=== PATIENT | male | born 1955 | race Caucasian/White ===

== ENCOUNTER 2018-08-05 16:13 | Emergency (ER) | payer SELFPAY ==
[2018-08-05 16:18] VITALS: BP 135/78; PULSE 99; RESP 18; TEMP 36.8; O2SAT 98
--- NOTE | 2018-08-05 16:29 | DI.RAD_ITS ---
SYMPTOM/DIAGNOSIS: ROLLED, CONTUSION, PAIN LEFT ANKLE: Three views. No priors. There is a mildly displaced oblique fracture of the distal left fibula. The medial aspect of the fracture line extends to the joint space. On the lateral views, there is a nondisplaced posterior malleolar fracture. No other fracture is identified. There is widening of the medial ankle joint. There is soft tissue swelling of the ankle. A large spur is seen at the inferior aspect of the posterior calcaneus. No radiopaque foreign bodies are seen in the soft tissues. IMPRESSION: Mildly displaced fracture involving the distal fibula. Nondisplaced fracture involving the posterior malleolus. Mild widening of the medial joint space of the left ankle.
--- NOTE | 2018-08-05 16:30 | W.ED.GENAD ---
Discharge Plan Disposition Patient Disposition: HOME Condition: Good Discharge Details Chief Complaint: Orthopedic Clinical Impression: Closed trimalleolar fracture Primary Care Provider: Wendie Milton ED Provider: Duran Bradley [place] Meds and New Rx's Prescriptions: New oxycodone-acetaminophen [Percocet] 5-325 mg tablet 1 tab PO Q6H PRN (Reason: trimalleolar fracture) Qty: 10 RF: 0 No Action lisinopril 20 MG tablet 20 mg PO DAILY RF: 0 methylprednisolone [Medrol] 4 MG tablet 4 mg PO DIRECTED RF: 0 adalimumab [Humira Pen Psoriasis-Uveitis] 40 MG/0.8 ML pen injector kit 40 mg SQ DIRECTED RF: 0 metformin 500 MG tablet 500 mg PO BID RF: 0 polyethylene glycol 3350 [Miralax] 17 GM powder in packet 255 gm PO for colonoscopy Qty: 1 RF: 0 bisacodyl [Dulcolax (bisacodyl)] 5 MG tablet,delayed release (DR/EC) 5 mg PO ONCE Qty: 4 RF: 0 Discharge Instructions Additional Instructions: Please do not weight bear on the left leg. Referrals: Audi Mcmahon MD [ [facility] STAFF PHYSICIAN] - Medical Decision Making Plan to x-ray left ankle. Pt declines medication for pain. Discussed impression of x-ray. Plan to CT ankle. Place patient in posterior splint and provide crutches. Non weight bearing until instructed by orthopedic. 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 He will be placed on orthopedic list. I did advise patient to be NPO after Tuesday night incase there is a chance he goes to OR Tuesday. Will provide Percocet for night time use. Risk versus benefits discussed with pt. I dispensed six percocet and prescribed ten. Patient surprisingly not in much pain but would like something to help with pain at night. He has been hobbling around for three days on the fracture. He agreed with POC. He tolerated splint placement. We discussed f/u and symptoms to return to ED for. Imaging Data Radiologic Study: Attestation: I personally reviewed and interpreted this imaging study as follows: Imaging: X-Ray My impression: distal fib fracture and question distal medial malleolus fx with slight widening of mortise. Ct: 1. Again noted is a mildly displaced fracture of the distal left fibula. Some bony fragments are noted in the lateral joint space. There is widening of the lateral ankle mortise. 2. There is some cortical irregularity to the anterior aspect of the medial malleolus on series 5 image 173 and the posterior aspect of the distal tibia on series 8 image 46. These appear well -corticated and therefore are favored to be chronic. Oddly, they have a more acute appearance on plain films. Given this discordance, correlation with symptomology is recommended. If there remains a concern for acute fracture in these regions, MRI could be considered. 3. Soft tissue swelling. Radiologist's impression: v-rad: 1. There is a mildly displaced fracture of the distal left fibular shaft. There is a linear lucency through the medial malleolus on image 1002, also worrisome for fracture. There is a fracture of the posterior malleolus, image 1003. Constellation of findings are concerning for a trimalleolar ankle fracture. There is widening of the medial ankle mortise. 2. Soft tissue swelling. This nonspecific finding that can be seen with trauma or infection. HPI General Mode of arrival: ambulatory (with limp ). Date/Time Provider Initiated Documentation: 08/05/18 16:22. Limitations to Documentation: no limitations. Information obtained by: patient and family. HPI Narrative: 63 y/o male here with c/o left ankle pain. He reports twisting and striking it against a piece of wood three days ago. He has not rested the ankle. 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 He still has pain and significant discoloration to the left ankle. The bruising is resolving. Denies any other injury. Related Data Home Medications Medication Instructions Recorded Confirmed adalimumab [Humira Psoriasis] 40 mg SQ DIRECTED 08/14/15 06/01/17 lisinopril 20 mg PO DAILY tab-cap 08/14/15 06/01/17 methylprednisolone [Medrol] 4 mg PO DIRECTED 08/14/15 06/01/17 metformin 500 mg PO BID tab-cap 04/29/17 06/01/17 bisacodyl [Dulcolax] 5 mg PO ONCE #4 tab 05/02/17 polyethylene glycol 3350 [Miralax] 255 gm PO for colonoscopy #1 gm 05/02/17 oxycodone-acetaminophen [Percocet] 1 tab PO Q6H PRN #10 tab 08/05/18 Previous Rx's Medication Instructions Recorded oxycodone-acetaminophen [Percocet] 1 tab PO Q6H PRN #10 tab 08/05/18 Allergies Allergy/AdvReac Type Severity Reaction Status Date / Time No Known Drug Allergies Allergy Unverified 06/01/17 06:35 General Stated Complaint: Orthopedic BHAVIK: 4 Review of Systems Constitutional Reports as per HPI Musculoskeletal Reports other (left ankle pain ) PFSH Family History Mother Heart disease Father Heart disease Sister Neoplasm Sister No problems noted. Sister No problems noted. Sister No problems noted. Brother No problems noted. Brother No problems noted. Brother Substance abuse Heart disease Hyperlipidemia Brother Neoplasm Brother No problems noted. Brother No problems noted. Brother No problems noted. Social History Smoking/Tobacco Use Status: Never Surgical History Colonoscopy - IV Sedation (06/01/17) Exam Const General: cooperative, healthy appearing and no acute distress Orientation: alert, awake and oriented x3 Extrem General: full ROM, normal capillary refill and no calf tenderness Left lower extremity: full ROM (with pain. Pain with dorsiflexion of the left foot causes lateral ankle pain. ) and ankle Details: tenderness Location: of the lateral malleolus, swelling Details: diffusely, normal ROM (with pain) and ecchymosis; no warmth Ankle/foot/toe images: 1. Discoloration yellow mixed with bluish discoloration encompassing entire ankle. Pain is greater over the lateral malleolus. Pain to lateral ankle when palpating the heel of foot. 2. Discoloration yellow mixed with bluish discoloration encompassing entire ankle. Pain is greater over the lateral malleolus. Pain to lateral ankle when palpating the heel of foot. Psych Affect: normal affect Attitude: cooperative Thought Process: normal Thought Content: normal Insight: insight good Judgment: judgment good Course Vital Signs Temperature 36.8 C 08/05/18 16:18 Pulse 99 H 08/05/18 16:18 Respiratory Rate 18 08/05/18 16:18 Blood Pressure 135/78 08/05/18 16:18 Pulse Oximetry 98 08/05/18 16:18 Temperature 36.8 C 08/05/18 16:18 Temperature Source Temporal Artery Scan 08/05/18 16:18 Pulse 99 H 08/05/18 16:18 Respiratory Rate 18 08/05/18 16:18 Respiratory Effort 08/05/18 16:21 Blood Pressure 135/78 08/05/18 16:18 Blood Pressure Position Supine 08/05/18 16:18 Pulse Oximetry 98 08/05/18 16:18 Oxygen Delivery Method Room Air 08/05/18 16:18 Oxygen Flow Rate 0 08/05/18 16:18 Pain Level 6 08/05/18 16:21 Procedures Orthopedic Splinting/Casting Injury #1: Side: left Lower Extremity Injury Location: lower leg (posterior splint to just above the knee. ) Lower Extremity Immobilizer: posterior splint (left leg) Other Orthopedic Equipment: crutches
--- NOTE | 2018-08-05 16:33 | ED.GENADUL_ITS ---
Discharge Plan Disposition Patient Disposition: HOME Condition: Good Discharge Details Chief Complaint: Orthopedic Clinical Impression: Closed trimalleolar fracture Primary Care Provider: Wendie Milton ED Provider: Duran Bradley [place] Meds and New Rx's Prescriptions: New oxycodone-acetaminophen [Percocet] 5-325 mg tablet 1 tab PO Q6H PRN (Reason: trimalleolar fracture) Qty: 10 RF: 0 No Action lisinopril 20 MG tablet 20 mg PO DAILY RF: 0 methylprednisolone [Medrol] 4 MG tablet 4 mg PO DIRECTED RF: 0 adalimumab [Humira Pen Psoriasis-Uveitis] 40 MG/0.8 ML pen injector kit 40 mg SQ DIRECTED RF: 0 metformin 500 MG tablet 500 mg PO BID RF: 0 polyethylene glycol 3350 [Miralax] 17 GM powder in packet 255 gm PO for colonoscopy Qty: 1 RF: 0 bisacodyl [Dulcolax (bisacodyl)] 5 MG tablet,delayed release (DR/EC) 5 mg PO ONCE Qty: 4 RF: 0 Discharge Instructions Additional Instructions: Please do not weight bear on the left leg. Referrals: Audi Mcmahon MD [ [facility] STAFF PHYSICIAN] - Medical Decision Making Plan to x-ray left ankle. Pt declines medication for pain. Discussed impression of x-ray. Plan to CT ankle. Place patient in posterior splint and provide crutches. Non weight bearing until instructed by orthopedic. 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 He will be placed on orthopedic list. I did advise patient to be NPO after Tuesday night incase there is a chance he goes to OR Tuesday. Will provide Percocet for night time use. Risk versus benefits discussed with pt. I dispensed six percocet and prescribed ten. Patient surprisingly not in much pain but would like something to help with pain at night. He has been hobbling around for three days on the fracture. He agreed with POC. He tolerated splint placement. We discussed f/u and symptoms to return to ED for. Imaging Data Radiologic Study: Attestation: I personally reviewed and interpreted this imaging study as follows: Imaging: X-Ray My impression: distal fib fracture and question distal medial malleolus fx with slight widening of mortise. Ct: 1. Again noted is a mildly displaced fracture of the distal left fibula. Some bony fragments are noted in the lateral joint space. There is widening of the lateral ankle mortise. 2. There is some cortical irregularity to the anterior aspect of the medial malleolus on series 5 image 173 and the posterior aspect of the distal tibia on series 8 image 46. These appear well -corticated and therefore are favored to be chronic. Oddly, they have a more acute appearance on plain films. Given this discordance, correlation with symptomology is recommended. If there remains a concern for acute fracture in these regions, MRI could be considered. 3. Soft tissue swelling. Radiologist's impression: v-rad: 1. There is a mildly displaced fracture of the distal left fibular shaft. There is a linear lucency through the medial malleolus on image 1002, also worrisome for fracture. There is a fracture of the posterior malleolus, image 1003. Constellation of findings are concerning for a trimalleolar ankle fracture. There is widening of the medial ankle mortise. 2. Soft tissue swelling. This nonspecific finding that can be seen with trauma or infection. HPI General Mode of arrival: ambulatory (with limp ) . Date/Time Provider Initiated Documentation: 08/05/18 16:22 . Limitations to Documentation: no limitations . Information obtained by: patient and family . HPI Narrative: 63 y/o male here with c/o left ankle pain. He reports twisting and striking it against a piece of wood three days ago. He has not rested the ankle. 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 He still has pain and significant discoloration to the left ankle. The bruising is resolving. Denies any other injury. Related Data Home Medications Medication Instructions Recorded Confirmed adalimumab [Humira Psoriasis] 40 mg SQ DIRECTED 08/14/15 06/01/17 lisinopril 20 mg PO DAILY tab-cap 08/14/15 06/01/17 methylprednisolone [Medrol] 4 mg PO DIRECTED 08/14/15 06/01/17 metformin 500 mg PO BID tab-cap 04/29/17 06/01/17 bisacodyl [Dulcolax] 5 mg PO ONCE #4 tab 05/02/17 polyethylene glycol 3350 [Miralax] 255 gm PO for colonoscopy #1 gm 05/02/17 oxycodone-acetaminophen [Percocet] 1 tab PO Q6H PRN #10 tab 08/05/18 Previous Rx's Medication Instructions Recorded oxycodone-acetaminophen [Percocet] 1 tab PO Q6H PRN #10 tab 08/05/18 Allergies Allergy/AdvReac Type Severity Reaction Status Date / Time No Known Drug Allergies Allergy Unverified 06/01/17 06:35 General Stated Complaint: Orthopedic BHAVIK: 4 Review of Systems Constitutional Reports as per HPI Musculoskeletal Reports other (left ankle pain ) PFSH Family History Mother Heart disease Father Heart disease Sister Neoplasm Sister No problems noted. Sister No problems noted. Sister No problems noted. Brother No problems noted. Brother No problems noted. Brother Substance abuse Heart disease Hyperlipidemia Brother Neoplasm Brother No problems noted. Brother No problems noted. Brother No problems noted. Social History Smoking/Tobacco Use Status: Never Surgical History Colonoscopy - IV Sedation (06/01/17) Exam Const General: cooperative, healthy appearing and no acute distress Orientation: alert, awake and oriented x3 Extrem General: full ROM, normal capillary refill and no calf tenderness Left lower extremity: full ROM (with pain. Pain with dorsiflexion of the left foot causes lateral ankle pain. ) and ankle Details: tenderness Location: of the lateral malleolus, swelling Details: diffusely, normal ROM (with pain) and ecchymosis; no warmth Ankle/foot/toe images: 2 1. Discoloration yellow mixed with bluish discoloration encompassing entire ankle. Pain is greater over the lateral malleolus. Pain to lateral ankle when palpating the heel of foot. 2. Discoloration yellow mixed with bluish discoloration encompassing entire ankle. Pain is greater over the lateral malleolus. Pain to lateral ankle when palpating the heel of foot. Psych Affect: normal affect Attitude: cooperative Thought Process: normal Thought Content: normal Insight: insight good Judgment: judgment good Course Vital Signs Temperature 36.8 C 08/05/18 16:18 Pulse 99 H 08/05/18 16:18 Respiratory Rate 18 08/05/18 16:18 Blood Pressure 135/78 08/05/18 16:18 Pulse Oximetry 98 08/05/18 16:18 Temperature 36.8 C 08/05/18 16:18 Temperature Source Temporal Artery Scan 08/05/18 16:18 Pulse 99 H 08/05/18 16:18 Respiratory Rate 18 08/05/18 16:18 Respiratory Effort 08/05/18 16:21 Blood Pressure 135/78 08/05/18 16:18 Blood Pressure Position Supine 08/05/18 16:18 Pulse Oximetry 98 08/05/18 16:18 Oxygen Delivery Method Room Air 08/05/18 16:18 Oxygen Flow Rate 0 08/05/18 16:18 Pain Level 6 08/05/18 16:21 Procedures Orthopedic Splinting/Casting Injury #1: Side: left Lower Extremity Injury Location: lower leg (posterior splint to just above the knee. ) Lower Extremity Immobilizer: posterior splint (left leg) Other Orthopedic Equipment: crutches
--- NOTE | 2018-08-05 17:02 | DI.VRAD_ITS ---
EXAM: XR Left Ankle Complete, 3 or more Views EXAM DATE/TIME: 08/05/2018 4:50 PM CLINICAL HISTORY: 63 years old, male; Pain; Ankle; Left; Patient HX: Rolled and contused left ankle 3 days ago TECHNIQUE: XR Left ankle 3 or more views. COMPARISON: No relevant prior studies available. FINDINGS: Bones/joints: There is a mildly displaced fracture of the distal left fibular shaft. There is a linear lucency through the medial malleolus on image 1002, also worrisome for fracture. There is a fracture of the posterior malleolus, image 1003. There is widening of the medial ankle mortise. Skeletal degenerative changes are seen. There is a heel spur. Soft tissues: There is soft tissue swelling. IMPRESSION: 1.There is a mildly displaced fracture of the distal left fibular shaft. There is a linear lucency through the medial malleolus on image 1002, also worrisome for fracture. There is a fracture of the posterior malleolus, image 1003. Constellation of findings are concerning for a trimalleolar ankle fracture. There is widening of the medial ankle mortise. 2. Soft tissue swelling. This is a nonspecific finding that can be seen with trauma or infection. Dictated and Authenticated by: Yenny Ramirez MD. Ordering:JULISSA LEWIS MD
--- NOTE | 2018-08-05 17:26 | DI.CT_ITS ---
SYMPTOM/DIAGNOSIS: F/U XRAY SHOWING TRIMALLEOLAR FX LEFT ANKLE CT: Multiple contiguous axial images of the left ankle were obtained. Sagittal and coronal reformatted images were evaluated on the Siemens work station. Comparison xray is from earlier in the day. There is a mildly comminuted oblique fracture through the distal fibula. The medial component of the fracture extends to the ankle joint. There are a few tiny fracture fragments seen in the lateral aspect of the joint space. There is a nondisplaced fracture of the posterior malleolus. No other fracture or dislocation is identified. There is soft tissue swelling about the ankle bilaterally, particularly laterally. There does appear to be some widening of the lateral aspect of the joint space. IMPRESSION: 1. Mildly displaced and mildly comminuted fracture involving the distal fibula. 2. Nondisplaced fracture of the posterior malleolus. 3. Soft tissue swelling about the ankle.
--- NOTE | 2018-08-05 18:40 | DI.VRAD_ITS ---
EXAM: CT Left Lower Extremity With Intravenous Contrast, Ankle CLINICAL HISTORY: 63 years old, male; Injury or trauma; Injury Twisted ankle; Initial encounter; Fracture, traumatic and sprain or strain; Left; Closed fracture; Not specified TECHNIQUE: Axial computed tomography images of the left ankle with intravenous contrast. Coronal and sagittal reformatted images were created and reviewed. COMPARISON: CR XR ANKLE LT COMPLETE 08/05/2018 4:43 PM FINDINGS: Bones/joints: Osteophytosis in the heel spur is seen. Again noted is a mildly displaced fracture of the shaft of the distal left fibula. Some bony fragments are noted in the lateral joint space. There is widening of the lateral ankle mortise. There is some cortical irregularity to the anterior aspect of the medial malleolus on series 5 image 173 and the posterior aspect of the distal tibia on series 8 image 46. These appear well-corticated and therefore are favored to be chronic. Oddly, they have a more acute appearance on plain films. Given this discordance, correlation with symptomatology is recommended. If there is concern for acute fracture in these regions, MRI could be considered. Soft tissues: There is soft tissue swelling. IMPRESSION: 1. Again noted is a mildly displaced fracture of the shaft of the distal left fibula. Some bony fragments are noted in the lateral joint space. There is widening of the lateral ankle mortise. 2. There is some cortical irregularity to the anterior aspect of the medial malleolus on series 5 image 173 and the posterior aspect of the distal tibia on series 8 image 46. These appear well-corticated and therefore are favored to be chronic. Oddly, they have a more acute appearance on plain films. Given this discordance, correlation with symptomatology is recommended. If there remains a concern for acute fracture in these regions, MRI could be considered. 3. Soft tissue swelling. This is a nonspecific finding that can be seen with trauma or infection. Other findings as above. Dictated and Authenticated by: Yenny Ramirez MD. Ordering:JULISSA LEWIS MD
[2018-08-05] MEDS: oxyCODONE 5 mg/Acetaminophen 325 mg TAB 6 TAB PO (19:13)
[2018-08-05 19:22] VITALS: BP 129/70; PULSE 91; RESP 18; TEMP 36.8; O2SAT 98
--- NOTE | 2018-08-05 19:24 | NUR.NOTE ---
Nursing Note: Provided pt with blue paper pants and toe sock for comfort prior to discharge. Pt shows very good use of crutches.
== END 2018-08-05 19:25 | disposition home or self-care (01) ==
PROVIDERS: Emergency Provider Nurse Practitioner Family; PCP Nurse Practitioner Family
DX: S82.855A Nondisplaced trimalleolar fracture of left lower leg, initial encounter for closed fracture (principal); W22.8XXA Striking against or struck by other objects, initial encounter
CPT/HCPCS: 27786; 73610; 73700; E0114

== ENCOUNTER → 2018-08-09 09:56 | Outpatient (BNVA) | payer MEDICARE, SELFPAY | PROVIDERS: PCP Nurse Practitioner Family; Referring Provider Nurse Practitioner Family; Visit Provider Orthopaedic Surgery | DX: S82.852A Displaced trimalleolar fracture of left lower leg, initial encounter for closed fracture (principal); W00.0XXA Fall on same level due to ice and snow, initial encounter; I10 Essential (primary) hypertension; E11.9 Type 2 diabetes mellitus without complications; Z79.84 Long term (current) use of oral hypoglycemic drugs; Z01.818 Encounter for other preprocedural examination | CPT/HCPCS: 99201; 99214 ==

== ENCOUNTER 2018-08-11 10:35 | Day surgery (SDC) | payer MEDICARE, SELFPAY ==
[2018-08-11 10:54] VITALS: BP 123/71; PULSE 92; RESP 18; TEMP 37; O2SAT 97
[2018-08-11] MEDS: Lactated Ringers 1,000 ML 80 ML IV (11:24)
[2018-08-11] MEDS: Bupivacaine LIPOSOME/PF 133 MG/10 ML VIAL IJ (12:24)
--- NOTE | 2018-08-11 12:26 | DI.RAD_ITS ---
SYMPTOMS/DIAGNOSIS: FX LT ANKLE LEFT ANKLE: Fluoroscopy Time: 17.6secs The patient is now status post reduction and internal fixation of the distal left fibular fracture. The orthopedic hardware appears in good position. The ankle joint appears well maintained and anatomic in alignment. Please refer to the procedure report for complete details.
--- NOTE | 2018-08-11 14:36 | W.PM.DSUDISC ---
Discharge Plan Disposition Patient Disposition: HOME Condition: Improving Discharge Details Reason For Visit: (L) ANKLE FRACTURE Attending Provider: Sean Dewitt Primary Care Provider: Wendie Milton Home Meds and New Rx's Prescriptions: No Action lisinopril 20 MG tablet 20 mg PO DAILY RF: 0 adalimumab [Humira Pen Psoriasis-Uveitis] 40 MG/0.8 ML pen injector kit 40 mg SQ DIRECTED RF: 0 metformin 500 MG tablet 500 mg PO BID RF: 0 oxycodone-acetaminophen [Percocet] 5-325 mg tablet 1 tab PO Q6H PRN (Reason: trimalleolar fracture) Qty: 10 RF: 0 Discharge Instructions Additional Instructions: KEEP YOUR LEFT FOOT ELEVATED ABOVE HEART LEVEL MUCH POSSIBLE FOR THE NEXT 48-72 HOURS. YOU MAY BE UP TO EAT OR TO GO TO THE BATHROOM, BUT TRY TO MAXIMIZE ELEVATION. YOU MAY USE AN ICE BAG OVER THE OUTSIDE OF YOUR CAST AT THE ANKLE, 30-40 MINUTES TO HELP CONTROL PAIN AND SWELLING. YOUR CAST HAS BEEN SPLIT. YOU MAY LOOSEN THE ELPIDIO BANDAGE AND SPREAD OR WEDGE YOUR CAST OPEN IF IT FEELS TOO TIGHT. EXERCISE HOUR TOES TO HELP YOUR MUSCLES IN PUMPING ANY SWELLING BACK TO THE HEART. IT MAY TAKE SOME TIME BEFORE YOU HAVE RETURN OF SENSATION OR MUSCLE FUNCTION OF THE TOES BECAUSE OF THE PREOPERATIVE PAIN BLOCK. USE YOUR CRUTCHES. DO NOT STEP THRU ON YOUR CAST, BUT YOU MAY REST YOUR CAST UPON THE GROUND WHILE STANDING STILL OR WHEN SITTING. TAKE YOUR REGULAR MEDICATIONS BEFORE. TAKE NORCO (HYDROCODONE 5/325MG) 1-2 EVERY 4 HOURS FOR SERIOUS PAIN. [facility] REGULATIONS LIMIT THE AMOUNT OF NORCO THAT CAN BE PRESCRIBED TO 18 TABLETS. TAKE TYLENOL, ADVIL OR ALEVE FOR MILDER PAIN. TYLENOL MAY BE TAKEN AT THE SAME TIME ALEVE OR AT THE SAME TIME ADVIL THEY ARE METABOLIZED DIFFERENTLY AND ARE NOT CROSS TOXIC. FOLLOW-UP WITH DR. DEWITT IN 2 WEEKS FOR CAST REMOVAL AND STITCH REMOVAL AND PROGRESS X-RAYS. Equipment/Supplies: Cast Activity:: Elevate Remove Dressings/Wound Care:: Do Not Remove Shower/Bathe:: 48 hours Diet:: As Tolerated DS: Diagnosis Discharge Diagnosis (1) Trimalleolar fracture of left ankle: Status: Acute
[2018-08-11 14:37] VITALS: BP 106/71; PULSE 66; RESP 14; TEMP 36.4; O2SAT 95
[2018-08-11 14:42] VITALS: BP 109/78; PULSE 71; RESP 15; TEMP 36.5; O2SAT 97
[2018-08-11 14:47] VITALS: BP 111/80; PULSE 63; RESP 14; TEMP 36.5; O2SAT 96
--- NOTE | 2018-08-11 14:54 | W.PM.DSUDISC ---
Discharge Plan Disposition Patient Disposition: HOME Condition: Improving Discharge Details Reason For Visit: (L) ANKLE FRACTURE Attending Provider: Sean Dewitt Primary Care Provider: Wendie Milton Home Meds and New Rx's Prescriptions: No Action lisinopril 20 MG tablet 20 mg PO DAILY RF: 0 adalimumab [Humira Pen Psoriasis-Uveitis] 40 MG/0.8 ML pen injector kit 40 mg SQ DIRECTED RF: 0 metformin 500 MG tablet 500 mg PO BID RF: 0 oxycodone-acetaminophen [Percocet] 5-325 mg tablet 1 tab PO Q6H PRN (Reason: trimalleolar fracture) Qty: 10 RF: 0 Discharge Instructions Additional Instructions: KEEP YOUR LEFT FOOT ELEVATED ABOVE HEART LEVEL MUCH POSSIBLE FOR THE NEXT 48-72 HOURS. YOU MAY BE UP TO EAT OR TO GO TO THE BATHROOM, BUT TRY TO MAXIMIZE ELEVATION. YOU MAY USE AN ICE BAG OVER THE OUTSIDE OF YOUR CAST AT THE ANKLE, 30-40 MINUTES TO HELP CONTROL PAIN AND SWELLING. YOUR CAST HAS BEEN SPLIT. YOU MAY LOOSEN THE ELPIDIO BANDAGE AND SPREAD OR WEDGE YOUR CAST OPEN IF IT FEELS TOO TIGHT. EXERCISE HOUR TOES TO HELP YOUR MUSCLES IN PUMPING ANY SWELLING BACK TO THE HEART. IT MAY TAKE SOME TIME BEFORE YOU HAVE RETURN OF SENSATION OR MUSCLE FUNCTION OF THE TOES BECAUSE OF THE PREOPERATIVE PAIN BLOCK. USE YOUR CRUTCHES. DO NOT STEP THRU ON YOUR CAST, BUT YOU MAY REST YOUR CAST UPON THE GROUND WHILE STANDING STILL OR WHEN SITTING. TAKE YOUR REGULAR MEDICATIONS BEFORE. TAKE NORCO (HYDROCODONE 5/325MG) 1-2 EVERY 4 HOURS FOR SERIOUS PAIN. [facility] REGULATIONS LIMIT THE AMOUNT OF NORCO THAT CAN BE PRESCRIBED TO 18 TABLETS. TAKE TYLENOL, ADVIL OR ALEVE FOR MILDER PAIN. TYLENOL MAY BE TAKEN AT THE SAME TIME ALEVE OR AT THE SAME TIME ADVIL THEY ARE METABOLIZED DIFFERENTLY AND ARE NOT CROSS TOXIC. FOLLOW-UP WITH DR. DEWITT IN 2 WEEKS FOR CAST REMOVAL AND STITCH REMOVAL AND PROGRESS X-RAYS. Stand Alone Forms: Anes.Nerve Block Instructions, Cast Care Sheet, DSU Post op Instructions, Meg Garcia (DSU) Equipment/Supplies: Cast Activity:: Elevate Remove Dressings/Wound Care:: Do Not Remove Shower/Bathe:: 48 hours Diet:: As Tolerated Discharge Orders Discharge Orders: Discharge Order (Routine); Ordered 08/11/18 Ordered By: Sean Dewitt Discharge Data Discharge Date/Time-TO BE ENTERED AT DEPARTURE: 08/11/18 16:30 Discharge Comment: DC'D HOME WITH . STABLE, VIA PRIVATE CAR DS: Diagnosis Discharge Diagnosis (1) Trimalleolar fracture of left ankle: Status: Acute
[2018-08-11 15:05] VITALS: BP 126/85; PULSE 70; RESP 14; TEMP 36.6; O2SAT 97
--- NOTE | 2018-08-11 16:07 | ROE_ITS ---
DATE OF PROCEDURE: August 11, 2018 PREOPERATIVE DIAGNOSIS: Trimalleolar fracture equivalent left ankle. POSTOPERATIVE DIAGNOSIS: Same. PROCEDURE: Open reduction internal fixation of the bimalleolar component of trimalleolar fracture. SURGEON: Sean Fields M.D. PRODUCT EXPERT: Napoleon Ruby PA-C ANESTHETIC: General via LMA following common peroneal nerve block. PREP: ChloraPrep. INDICATIONS: This patient is approximately eight days status post injury to his left ankle. He did not seek medical attention until approximately six days ago. He had missed a step and twisted his an kle underneath him. X-rays revealed a fracture of the fibula with widening of the ankle mortise and a small avulsion fracture of the posterior malleolus. I saw the patient in the office three days ago and recommended surgical stabilization because of the widened ankle mortise. The reasons for this w ere discussed in detail and he understood and wished to proceed. The patient is otherwise reasonably healthy; he does have diabetes but it's under reasonably good control. He is status post successful total knee replacements in [place] approximately two years ago. He has no allergies. I met the patient in the Day Surgery holding area and correctly marked his left leg. I felt that a p opliteal block would with his postoperative recovery and enhance the chance of going home this evenin g. He consented and wished to proceed. PROCEDURE: He was taken to the operating suite after the common peroneal nerve block was done. A to urniquet was applied to the proximal thigh. The entire left lower extremity from the knee to the toe s was prepped with ChloraPrep. Sterile drapes were applied. A time-out was instituted to reiterate the planned procedure and any concerns. Two grams of Ancef were given as a prophylactic antibiotic b efore inflation of the tourniquet to 380 mmHg. A lateral approach to the fibula was used. The skin and subcutaneous tissues were incised. Hemostas is was controlled by electrocautery. Care was taken not to create any undermining flaps so as to min imize any vascular insult. The fracture site was easily identified and the fracture hematoma was par tially organized. This had to be curetted away to allow reduction of the fibula. This was reduced a nd held with a bone clamp and the C-arm image intensifier confirmed anatomical reduction of the fibul a in the ankle mortise. I then proceeded to fabricate a 7-hole, one-third tubular plate to fit the fibula. Prior to placing the plate, a lag screw was placed from anterior to posterior direction across the major fracture frag ment site. This was done by countersinking the proximal superior hole. This measured approximately 18 mm. The image again confirmed satisfactory placement of the screw and anatomical reconstitution o f the ankle mortise. After contouring the one-third tubular plate, appropriate fixation techniques w ere utilized to fix it to the fibula. I felt that a syndesmotic screw was necessary to treat the del toid ligament disruption. The plate was fixed 3.5 mm cortical screws; the most distal screw in the p late was a locking 3.5 mm screw. The fourth screw from the bottom was selected as the site to place the syndesmotic screw. The 3.2 mm drill was placed across the fibula and into the tibia under C-arm image intensifier control. Threads were then created in the fibula and in the tibia with a 4.5 mm ta p. A 50 mm long, 4.5 mm cortical screw was then inserted through the fourth hole from the bottom on the one-third tubular plate across into the tibia. The ankle was dorsiflexed maximally to minimize t he 4.5 mm screw from compromising the ankle mortise. This screw was placed in a non-lagged fashion, as described by Sanjay. Anatomical reconstitution of the ankle mortise was achieved. The wound was irrigated. The deep fascia was closed with sutures of #2-0 Vicryl. The subcutaneous t issue was closed with #3-0 Vicryl. The tourniquet was deflated; hemostasis was under control. The s kin was closed with sutures of #4-0 Ethilon alternating with [id number]-[id number] retention sutures and simple sutures. The wound was dressed with Xeroform gauze 4x4's, a 3-inch conforming gauze bandage f ollowed by a short-leg cast with an ankle neutral dorsiflexion, which was univalved. He was taken to the recovery room in satisfactory condition, tolerating the procedure well. Estimated blood loss wa s 5 to 10 cc's.
[2018-08-11 16:12] VITALS: BP 135/80; PULSE 78; RESP 15; TEMP 36.5; O2SAT 94
--- NOTE | 2018-08-16 07:43 | PDOC.DSDIS_ITS ---
Discharge Plan Disposition Patient Disposition: HOME Condition: Improving Discharge Details Reason For Visit: (L) ANKLE FRACTURE Attending Provider: Sean Dewitt Primary Care Provider: Wendie Milton Home Meds and New Rx's Prescriptions: No Action lisinopril 20 MG tablet 20 mg PO DAILY RF: 0 adalimumab [Humira Pen Psoriasis-Uveitis] 40 MG/0.8 ML pen injector kit 40 mg SQ DIRECTED RF: 0 metformin 500 MG tablet 500 mg PO BID RF: 0 oxycodone-acetaminophen [Percocet] 5-325 mg tablet 1 tab PO Q6H PRN (Reason: trimalleolar fracture) Qty: 10 RF: 0 Discharge Instructions Additional Instructions: KEEP YOUR LEFT FOOT ELEVATED ABOVE HEART LEVEL MUCH POSSIBLE FOR THE NEXT 48-72 HOURS. YOU MAY BE UP TO EAT OR TO GO TO THE BATHROOM, BUT TRY TO MAXIMIZE ELEVATION. YOU MAY USE AN ICE BAG OVER THE OUTSIDE OF YOUR CAST AT THE ANKLE, 30-40 MINUTES TO HELP CONTROL PAIN AND SWELLING. YOUR CAST HAS BEEN SPLIT. YOU MAY LOOSEN THE ELPIDIO BANDAGE AND SPREAD OR WEDGE YOUR CAST OPEN IF IT FEELS TOO TIGHT. EXERCISE HOUR TOES TO HELP YOUR MUSCLES IN PUMPING ANY SWELLING BACK TO THE HEART. IT MAY TAKE SOME TIME BEFORE YOU HAVE RETURN OF SENSATION OR MUSCLE FUNCTION OF THE TOES BECAUSE OF THE PREOPERATIVE PAIN BLOCK. USE YOUR CRUTCHES. DO NOT STEP THRU ON YOUR CAST, BUT YOU MAY REST YOUR CAST UPON THE GROUND WHILE STANDING STILL OR WHEN SITTING. TAKE YOUR REGULAR MEDICATIONS BEFORE. TAKE NORCO (HYDROCODONE 5/325MG) 1-2 EVERY 4 HOURS FOR SERIOUS PAIN. [facility] REGULATIONS LIMIT THE AMOUNT OF NORCO THAT CAN BE PRESCRIBED TO 18 TABLETS. TAKE TYLENOL, ADVIL OR ALEVE FOR MILDER PAIN. TYLENOL MAY BE TAKEN AT THE SAME TIME ALEVE OR AT THE SAME TIME ADVIL THEY ARE METABOLIZED DIFFERENTLY AND ARE NOT CROSS TOXIC. FOLLOW-UP WITH DR. DEWITT IN 2 WEEKS FOR CAST REMOVAL AND STITCH REMOVAL AND PROGRESS X- RAYS. Stand Alone Forms: Anes.Nerve Block Instructions, Cast Care Sheet, DSU Post op Instructions, Meg Garcia (DSU) Equipment/Supplies: Cast Activity:: Elevate Remove Dressings/Wound Care:: Do Not Remove Shower/Bathe:: 48 hours Diet:: As Tolerated Discharge Orders Discharge Orders: Discharge Order (Routine); Ordered 08/11/18 Ordered By: Sean Dewitt Discharge Data Discharge Date/Time-TO BE ENTERED AT DEPARTURE: 08/11/18 16:30 Discharge Comment: DC'D HOME WITH . STABLE, VIA PRIVATE CAR DS: Diagnosis Discharge Diagnosis (1) Trimalleolar fracture of left ankle: Status: Acute
== END 2018-08-11 16:30 | disposition home or self-care (01) ==
PROVIDERS: PCP Nurse Practitioner Family; Visit Provider Orthopaedic Surgery
PROC: (CPT 27822; principal; 2018-08-11 12:00)
DX: S82.852A Displaced trimalleolar fracture of left lower leg, initial encounter for closed fracture (principal); X50.1XXA Overexertion from prolonged static or awkward postures, initial encounter
CPT/HCPCS: 27822; 73610; J0690; J1100; J2250; J2405

== ENCOUNTER 2018-08-24 08:48 | Outpatient (CLI) | payer MEDICARE, SELFPAY ==
--- NOTE | 2018-08-24 08:25 | DI.RAD_ITS ---
SYMPTOM/DIAGNOSIS: F/U ANKLE FRACTURE, S/P SURGERY LEFT ANKLE: 08/24/18 Three views were obtained and show plate and screw fixation of the distal fibula and tibiofibular joint. The ankle mortise appears well maintained and alignment appears unchanged in comparison with intraoperative films of 08/11/18
== END 2018-08-24 09:08 ==
PROVIDERS: PCP Nurse Practitioner Family; Referring Provider Nurse Practitioner Family; Visit Provider Orthopaedic Surgery
DX: S82.852D Displaced trimalleolar fracture of left lower leg, subsequent encounter for closed fracture with routine healing (principal); W00.9XXD Unspecified fall due to ice and snow, subsequent encounter; E11.9 Type 2 diabetes mellitus without complications; Z79.84 Long term (current) use of oral hypoglycemic drugs
CPT/HCPCS: L4361; 73610

== ENCOUNTER 2018-09-07 10:42 | Outpatient (CLI) | payer MEDICARE, SELFPAY ==
--- NOTE | 2018-09-07 10:38 | DI.RAD_ITS ---
SYMPTOM/DIAGNOSIS: F/U LEFT ANKLE SURGERY LEFT ANKLE: 09/07 Three views were obtained. There is plate and screw fixation in the distal fibula and transfixing the tibiofibular joint. Alignment appears unchanged in comparison with the examination of 08/24/18
== END 2018-09-07 11:02 ==
PROVIDERS: PCP Nurse Practitioner Family; Referring Provider Nurse Practitioner Family; Visit Provider Orthopaedic Surgery
DX: S82.852D Displaced trimalleolar fracture of left lower leg, subsequent encounter for closed fracture with routine healing (principal); W00.0XXD Fall on same level due to ice and snow, subsequent encounter; E11.9 Type 2 diabetes mellitus without complications; Z79.84 Long term (current) use of oral hypoglycemic drugs
CPT/HCPCS: 73610

== ENCOUNTER → 2018-10-16 14:50 | Outpatient (BNVA) | payer MEDICARE, SELFPAY | PROVIDERS: PCP Nurse Practitioner Family; Referring Provider Nurse Practitioner Family; Visit Provider Orthopaedic Surgery | DX: S82.852D Displaced trimalleolar fracture of left lower leg, subsequent encounter for closed fracture with routine healing (principal); X50.1XXD Overexertion from prolonged static or awkward postures, subsequent encounter ==

== ENCOUNTER 2019-05-10 12:35 | Outpatient (REF) | payer MEDICARE, SELFPAY ==
[2019-05-10 18:38] LABS: Anion Gap 10.9 mmol/L (3-11); BUN 21 mg/dL (7-18); CO2 24.1 mmol/L (21.0-32.0); CREATININE 0.81 mg/dL (0.70-1.30); Calcium 9.1 mg/dL (8.5-10.1); Chloride 103 mmol/L (98-107); Glucose 104 mg/dL (70-100); Potassium 4.3 mmol/L (3.5-5.1); Sodium 138 mmol/L (136-145)
== END 2019-05-10 12:55 ==
LOC: NCHCN 12:35
PROVIDERS: PCP Nurse Practitioner Family; Visit Provider Nurse Practitioner Family
DX: E11.9 Type 2 diabetes mellitus without complications (principal); I10 Essential (primary) hypertension
CPT/HCPCS: 80048

== ENCOUNTER 2020-10-30 08:13 | Outpatient (REF) | payer OTHER, SELFPAY ==
[2020-10-30 16:08] LABS: Anion Gap 7.2 mmol/L (3-11); BUN 19 mg/dL (7-18); CO2 29.8 mmol/L (21.0-32.0); CREATININE 0.98 mg/dL (0.70-1.30); Calcium 9.3 mg/dL (8.5-10.1); Calculated LDL 106 mg/dL (<100); Chloride 103 mmol/L (98-107); Cholesterol 177 mg/dL (<200); Glucose 144 mg/dL (74-106); HDL Cholesterol 49 mg/dL (40-60); Potassium 4.6 mmol/L (3.5-5.1); Sodium 140 mmol/L (136-145); Triglyceride 110 mg/dL (<150)
[2020-10-30 16:17] LABS: Hemoglobin A1C 7.1 % (<5.7)
== END 2020-10-30 08:33 ==
LOC: LBN 08:13
PROVIDERS: PCP Nurse Practitioner Family; Visit Provider Nurse Practitioner Family
DX: E11.9 Type 2 diabetes mellitus without complications (principal); I10 Essential (primary) hypertension; E78.5 Hyperlipidemia, unspecified; Z00.00 Encounter for general adult medical examination without abnormal findings
CPT/HCPCS: 80048; 80061; 83036

== ENCOUNTER 2021-01-28 17:13 | Emergency (ER) | payer OTHER, SELFPAY ==
[2021-01-28 17:27] VITALS: BP 163/82; PULSE 98; RESP 20; TEMP 36.9; O2SAT 94
[2021-01-28] MEDS: Normal Saline Flush 10 ML SYR IVP (17:35)
[2021-01-28 17:55] LABS: Abs Immature Grans 0.09 10^3/uL (0.0-0.06); Absolute Basophil Count 0.03 10^3/uL (0.0-0.2); Absolute Eosinophil Count 0.07 10^3/uL (0.0-0.7); Absolute Lymphocyte Count 2.61 10^3/uL (1.2-3.4); Basophils % 0.2; Eosinophils % 0.4; HCT 47.7 % (40.0-50.0); HGB 15.3 g/dL (13.5-17.5); Immature Grans % 0.5; Lymphocytes % 15.8; MCH 29.2 pg (27.0-33.0); MCHC 32.1 % (32.0-36.0); MPV 9.8 fL (8.0-11.0); Monocytes % 10.5; Neutrophils % 72.6; Nucleated RBC 0 %; Platelet Count 230 10^3/uL (130-400); RBC 5.24 10^6/uL (4.36-5.78); RDW 13.1 % (11.8-14.1); WBC 16.52 10^3/uL (4.4-10.8)
[2021-01-28] MEDS: fentaNYL 100 MCG/2 ML VIAL 50 MCG IVP (17:55)
[2021-01-28 18:07] LABS: ALT 27 U/L (16-63); AST 17 U/L (15-37); Albumin 3.8 g/dL (3.4-5.0); Alkaline Phosphatase 66 U/L (46-116); BUN 26 mg/dL (7-18); Bilirubin, Total 0.6 mg/dL (0.2-1.0); CREATININE 1.8 mg/dL (0.70-1.30); Calcium 9.3 mg/dL (8.5-10.1); Chloride 102 mmol/L (98-107); Estimated GFR 38.06 (mL/min/1.73m2); Glucose 126 mg/dL (74-106); Lipase 80 U/L (73-393); Potassium 4.1 mmol/L (3.5-5.1); Sodium 139 mmol/L (136-145); Total Protein 8.5 g/dL (6.4-8.2)
--- NOTE | 2021-01-28 18:10 | ED.GENADUL_ITS ---
Discharge Plan Disposition Patient Disposition: HOME Condition: Good Discharge Details Clinical Impression: Ureterolithiasis Primary Care Provider: Wendie Milton ED Provider: Leola Pruitt Home Meds and New Rx's Prescriptions: New tamsulosin [Flomax] 0.4 mg capsule 0.4 mg PO DAILY Qty: 5 RF: 0 oxycodone 5 mg tablet 5 mg PO Q8H PRNQty: 7 RF: 0 ondansetron HCl [Zofran] 4 mg tablet 4 mg PO Q8H Qty: 7 RF: 0 No Action lisinopril 20 MG tablet 30 mg PO DAILY RF: 0 Humira Pen Newt-Gqhrfw-Atan HS 40 MG/0.8 ML pen injector kit 40 mg SQ DIRECTED RF: 0 metformin 500 MG tablet 500 mg PO BID RF: 0 atorvastatin 20 mg tablet 20 mg PO DAILY RF: 0 Discharge Instructions Additional Instructions: Take Zofran as needed for nausea and vomiting Take oxycodone as needed for pain You may take Tylenol 1 g every 6 hours as needed for discomfort Do not drive while taking this medication for 8 hours It is also an addictive medication so use it only if your pain is uncontrolled with Tylenol You may take Flomax to help you pass the stone and follow-up with Dr. Michele, urologist Strain your urine, we will provide you with a strainer Return earlier with worsening shortness of breath, fever, chills, or with any new or progressing symptoms Referrals: Sg Michele MD [ [facility] STAFF PHYSICIAN] - Medical Decision Making Patient is symptomatically improved, he has a noted left UVJ stone with mild hydro on CT scan He has red blood cells but no evidence of secondary infection and patient is nontoxic in appearance He is given prescription for Percocet, Flomax, and Zofran for home He is referred to urology in the outpatient setting and given Flomax prescrip tion He is given low threshold to return should he have new or worsening complaints He is also made aware regarding pulmonary nodule that he will need to follow-up in the outpatient setting Creatinine is elevated at 1.8, I suspect this is secondary to obstructive uropathy, he will need this rechecked by urology or primary care physician I suspect this will improve when he passes his stone He is afebrile and nontoxic, he does have mild leukocytosis, he will need close outpatient follow-up with his primary care physician and urology, in fact he does have an appointment with his primary care physician in 2 days for evaluation He is also concerned regarding his, patient, he is aware of this the oxycodone will exacerbate this, he will take MiraLAX and add on mag citrate with persistent symptoms He is also aware that opiate analgesia is addictive and will use caution His urine does not show evidence of infection, patient is discharged home in stable condition with stable vitals, he will follow up with his primary care physician He is made aware regarding his pulmonary nodule on his x-ray and need for outpatient follow-up regarding this finding He is also made aware of the 3 mm stone at this UVJ Return precautions discussed and patient expressed understanding HPI This 65-year-old male presents with reports of abdominal pain, left flank and intermittent left lower quadrant abdominal pain which started on Tuesday. Patient states the pain is sharp and intermittent. He states that the same pain that he is experienced in the past with diverticulitis. He denies any fever or chills. He denies any chest pain or shortness of breath. He denies any dizziness or weakness. He denies known exacerbating or alleviating factors. He states the pain is been constant since onset. He denies hematuria or diarrhea. Denies nausea or vomiting. Denies fever or chills. General Date/Time Provider Initiated Documentation: 01/28/21 17:13 . Related Data Home Medications Medication Instructions Recorded Confirmed adalimumab [Humira Psoriasis] 40 mg SQ DIRECTED 08/14/15 01/28/21 lisinopril 30 mg PO DAILY tab-cap 08/14/15 01/28/21 metformin 500 mg PO BID tab-cap 04/29/17 01/28/21 atorvastatin 20 mg PO DAILY 01/28/21 01/28/21 ondansetron HCl [Zofran] 4 mg PO Q8H #7 tab 01/28/21 oxycodone 5 mg PO Q8H PRN #7 tab 01/28/21 tamsulosin [Flomax] 0.4 mg PO DAILY #5 cap 01/28/21 Previous Rx's Medication Instructions Recorded ondansetron HCl [Zofran] 4 mg PO Q8H #7 tab 01/28/21 oxycodone 5 mg PO Q8H PRN #7 tab 04/21/21 tamsulosin [Flomax] 0.4 mg PO DAILY #5 cap 01/28/21 Allergies Allergy/AdvReac Type Severity Reaction Status Date / Time No Known Drug Allergies Allergy Unverified 01/28/21 17:29 General Stated Complaint: Abd Prob BHAVIK: 3 Review of Systems Narrative: Review of systems negative x7 aside from where indicated in HPI [facility] Surgical History (Updated 08/09/18 @ 11:01 by SUNITA Jean-Baptiste) Colonoscopy - IV Sedation (06/01/17) Hx of total knee arthroplasty Family History Mother Heart disease Father Heart disease Sister Neoplasm Sister No problems noted. Sister No problems noted. Sister No problems noted. Brother No problems noted. Brother No problems noted. Brother Substance abuse Heart disease Hyperlipidemia Brother Neoplasm Brother No problems noted. Brother No problems noted. Brother No problems noted. Social History Smoking/Tobacco Use Status: Never Smoking risk assessment performed?: Yes Alcohol Intake: current Drug use: Daily Substance use type: marijuana current occupation: [employer] Do you feel safe in your relationship?: Yes Exam Const General: cooperative and comfortable Eyes Pupils: PERRL Resp Effort & Inspection: normal respiratory effort Auscultation: clear to auscultation bilaterally Cardio Rate: regular rate Rhythm: regular rhythm GI Other: Left CVA tenderness, no abdominal tenderness anteriorly, no pulsatile male, visible sign of trauma Skin General skin exam: no rashes or lesions noted Neuro General: patient alert and patient oriented x3 Course Vital Signs Vital signs: Vital Signs Temperature 36.9 C 01/28/21 17:27 Pulse 98 H 01/28/21 17:27 Respiratory Rate 20 01/28/21 17:27 Blood Pressure 163/82 H 01/28/21 17:27 Pulse Oximetry 94 01/28/21 17:27 Temperature 36.9 C 01/28/21 17:27 Pulse 98 H 01/28/21 17:27 Respiratory Rate 20 01/28/21 17:27 Respiratory Effort 01/28/21 17:31 Blood Pressure 163/82 H 01/28/21 17:27 Blood Pressure Position Sitting 01/28/21 17:27 Pulse Oximetry 94 01/28/21 17:27 Oxygen Delivery Method Room Air 01/28/21 17:27 Oxygen Flow Rate 0 01/28/21 17:27 Pain Level 4 01/28/21 17:27
[2021-01-28 18:17] LABS: Absolute Monocyte Count 1.73 10^3/uL (0.1-0.8); Absolute Neutrophil Count 11.99 10^3/uL (1.2-6.7); Diff Comment Diff Reviewed; RBC Morphology Normal
[2021-01-28 18:18] LABS: Bilirubin Negative (Negative); Blood Small (Negative); Clarity Clear (Clear); Glucose Negative (Negative); Ketones Negative (Negative); Leukocyte Esterase Negative (Negative); Nitrite Negative (Negative); Specific Gravity >= 1.030 (1.005-1.025); Urobilinogen 0.2 EU/dL (Up TO 0.2)
[2021-01-28 18:24] LABS: Bacteria Negative HPF (Negative); C & S Indicated? No; Casts Negative LPF (Negative); Crystals Negative HPF (Negative); Epithelial Cells Negative HPF (Negative); Mucus Negative (Negative); Other Cells Negative (Negative); WBC 0-2 HPF (0-5)
[2021-01-28 19:32] VITALS: BP 142/78; PULSE 90; RESP 18; O2SAT 96
[2021-01-28] MEDS: Normal Saline 1,000 ML 1000 ML IV (19:33)
[2021-01-28] MEDS: Normal Saline - Diluent 50 ML VIAL IV (20:02)
--- NOTE | 2021-01-28 20:43 | DI.CT_ITS ---
EXAM: CT ABDOMEN PELVIS W CLINICAL HISTORY: left flank pain. TECHNIQUE: Imaging Protocol: Axial computed tomography images with coronal and sagittal reformatted images were created and reviewed CONTRAST MATERIAL: Intravenous: Omnipaque 100cc Oral: None COMPARISON: No exams were available for comparison FINDINGS: VISUALIZED LUNG BASES: There is 5 millimeter noncalcified nodule noted in the medial left lower lobe. Requires appropriate follow-up. No pleural effusions.. ABDOMEN: There is no ascites. LIVER: Small hypodensity in right hepatic lobe noted measuring 7 millimeters. Probably a small heman gioma. GALLBLADDER/BILIARY: No obvious gallbladder pathology. CBD is not dilated. PANCREAS: No evidence of pancreatic mass nor dilatation of the pancreatic duct. SPLEEN: Spleen is not enlarged. No obvious intrasplenic lesions. Splenic and portal veins are paten t. ADRENALS: There are no significant adrenal masses. KIDNEYS:There is 2.5 cm cyst superiorly in the right kidney and there is a lateral cortical cyst in t he opposite-left kidney measuring 1.7 cm. No solid lesions seen in either kidney. However, on the l eft side there is mild hydronephrosis and hydroureter. The culprit calculus measures 3 millimeters a nd is intramural at the left ureterovesical junction with some thickening of the bladder wall at this level, probably edema.. ABDOMINAL AORTA: The abdominal aorta is atherosclerotic. Mild fusiform dilatation of the infrarenal abdominal aorta diameter 2.8 cm. Inferior mesenteric artery is patent. There is no significant dila tation of the common iliac arteries. LYMPH NODES:There is no retroperitineal nor paraaortic adenopathy. ABDOMINAL WALL/GI: No evidence of significant anterior abdominal wall hernia. No bowel obstruction. PELVIS: GI: No evidence of appendicitis.There is sigmoid diverticuli. No obvious diverticulitis. LYMPH NODES: There is no intrapelvic nor inguinal adenopathy. REPRODUCTIVE: Prostate gland size is normal. Seminal vesicles unremarkable URINARY BLADDER: Thickening of the wall of the urinary bladder adjacent to the left ureterovesical ju nction which requires further investigation. OSSEOUS: No significant osseous lesions. IMPRESSION: 1. There is a 3 millimeter calculus at the intramural aspect of the left ureterovesical junction with dilatation left collecting system above this level. No other calculi seen in the kidneys. Single b enign-appearing cysts noted in each kidney. No solid renal masses evident. 2. There is some thickening of the left bladder wall around the uterovesical junction, somewhat more than expected from mild edema. Therefore urology consultation is recommended for possible cystoscopy . 3. There is a noncalcified 5 millimeter nodule in the left lower lobe. Recommend follow-up chest CT scan. RADIATION DOSE DELIVERED: 1,668.24mGy.cm Total DLP DATA REPOSITORY: All CT scans at this facility are submitted to the National Radiology Data Registry (NRDR) Dose Index Registry (DIR) with the [employer] (ACR). RADIATION OPTIMIZATION: All CT scans at this facility use at least one of these dose optimization te chniques: automated exposure control; mA and/or kV adjustment per patient size (includes targeted exa ms where dose is matched to clinical indication); or iterative reconstruction.
--- NOTE | 2021-01-28 21:24 | DI.VRAD_ITS ---
PROCEDURE INFORMATION: Exam: CT Abdomen And Pelvis With Contrast Exam date and time: 01/28/2021 5:50 PM Age: 65 years old Clinical indication: Abdominal pain; Flank; Left TECHNIQUE: Imaging protocol: Computed tomography of the abdomen and pelvis with contrast. Radiation optimization: All CT scans at this facility use at least one of these dose optimization techniques: automated exposure control; mA and/or kV adjustment per patient size (includes targeted exams where dose is matched to clinical indication); or iterative reconstruction. Contrast material: [id number]; Contrast volume: 100 ml; Contrast route: INTRAVENOUS (IV); COMPARISON: No relevant prior studies available. FINDINGS: Lungs: Small pneumatocele in the posterior right lower lobe. Medial left lower lobe juxtapleural 6 mm pulmonary nodule. Liver: Mild generalized hepatic steatosis. Lateral segment 8 6 mm hypodensity likely representing a small cyst versus hemangioma. Similar finding near the middle hepatic vein measuring 1 cm on image 19 also likely representing a small cyst versus hemangioma. Gallbladder and bile ducts: Normal. No calcified stones. No ductal dilation. Pancreas: Normal. No ductal dilation. Spleen: Normal. No splenomegaly. Adrenal glands: Normal. No mass. Kidneys and ureters: Left perinephric fat stranding and mild left hydronephrosis and left hydroureter due to a left ureteral ventricular junction calculus. The calculus measures 3 mm on series 4, image 79. Mild delayed enhancement of the left kidney relative to the right. No right hydronephrosis, right renal, or right ureteric calculus. Lobulated but simple right upper pole 2.5 cm renal cyst. Posterior interpolar 2.0 simple left renal cyst. Stomach and bowel: Unremarkable. No obstruction. No mucosal thickening. Appendix: Normal appendix. No appendicitis. Intraperitoneal space: Unremarkable. No free air. No significant fluid collection. Vasculature: See Liver finding. Lymph nodes: Unremarkable. No enlarged lymph nodes. Urinary bladder: Unremarkable as visualized. Reproductive: Unremarkable as visualized. Bones/joints: Unremarkable. No acute fracture. Soft tissues: Unremarkable. IMPRESSION: 1. Mild left hydroureteronephrosis due to a 3 mm left UVJ calculus. 2. Medial left lower lobe 6 mm pulmonary nodule.For patients at low risk (minimal or absent history of smoking and of other known risk factors), recommend CT Chest at 6-12 months, then consider CT Chest at 18-24 months. For patients at high risk (history of smoking or of other known risk factors), recommend CT Chest at 6-12 months, then CT Chest at 18-24 months. (Reference: Margarita) References: Margarita Hough et al. Guidelines for Management of Incidental Pulmonary Nodules Detected on CT Images: From the Fleischner Society 2017. Radiology. 2017;284(1):228-243. Dictated and Authenticated by: Taina Gardner MD. Ordering:ELIAZAR Bhagat MD
[2021-01-28] MEDS: oxyCODONE 5 MG TAB PO (22:16)
== END 2021-01-28 22:53 | disposition home or self-care (01) ==
PROVIDERS: Emergency Provider Physician Assistant; PCP Nurse Practitioner Family
DX: N13.2 Hydronephrosis with renal and ureteral calculous obstruction (principal); R94.4 Abnormal results of kidney function studies; R91.1 Solitary pulmonary nodule
CPT/HCPCS: 36415; 80053; 83690; 96361; 96374; 99285; 74177; 81003; 81015; 85025; 99284; J3010

== ENCOUNTER → 2021-02-02 11:04 | Outpatient (BNVA) | payer OTHER, SELFPAY | PROVIDERS: PCP Nurse Practitioner Family; Referring Provider Nurse Practitioner Family; Visit Provider Nurse Practitioner Gerontology | DX: N20.1 Calculus of ureter (principal); E11.9 Type 2 diabetes mellitus without complications; I10 Essential (primary) hypertension | CPT/HCPCS: 99215 ==

== ENCOUNTER → 2021-02-23 02:22 | Outpatient (CLI) | payer OTHER, SELFPAY ==
--- NOTE | 2021-02-23 | DI.US_ITS ---
Exam(s) US RENAL EXAM: US RENAL CLINICAL HISTORY: MONITORING LT HYDRONEPHROSIS, URETEROLITHIASIS, N20.1 TECHNIQUE: Ultrasound of both kidneys performed using standard protocol. COMPARISON: US US OR ANESTHESIA from 08/11/[address] ABDOMEN PELVIS W from 01/28/2021 FINDINGS: RIGHT KIDNEY: Measures 11 cm in length. There is a 0.5 x 2.2 cm cyst in the superior pole. Normal cortical thickne ss and corticomedullary differentiation .No solid masses No intrarenal calculi nor hydronephrosis. LEFT KIDNEY: Measures 11.7 cm in length. There is a 1.8 x 2.1 cm cortical cyst in the lateral cortex. Normal cor tical thickness and corticomedullary differentiaion. No solids masses. No intrarenal calculi nor hyd onephrosis. Previously present mild dilatation left collecting system is less evident on the present ultrasound i mages. Prior CT scan did reveal a calculus in the lower left ureter. URINARY BLADDER: Prevoid volume is 57 cc Postvoid volume is not tested due to inadequate prep cc No evidence of bladder mass nor diverticuli. Ureterovesical jets: Right visualize; left not visualized IMPRESSION: 1. Previously present mild left-sided hydronephrosis is not seen in this patient who had recent CT s can 01/28/2021 revealing a small calculus in the lower left ureter. However, on today's ultrasound e xamination of the left ureterovesical junction was not visualized and therefore there may still be a calculus or edema in the lower left ureter prevented visualization of the left ureterovesical jet. 2. DATA REPOSITORY:
== END ==
PROVIDERS: PCP Nurse Practitioner Family; Visit Provider Nurse Practitioner Gerontology
DX: N20.1 Calculus of ureter (principal); Z13.30 Encounter for screening examination for mental health and behavioral disorders, unspecified
CPT/HCPCS: 76770

== ENCOUNTER → 2021-02-24 14:35 | Outpatient (BNVA) | payer OTHER, SELFPAY | PROVIDERS: PCP Nurse Practitioner Family; Referring Provider Nurse Practitioner Family; Visit Provider Nurse Practitioner Gerontology | DX: N20.1 Calculus of ureter (principal) | CPT/HCPCS: 99213 ==

== ENCOUNTER → 2021-08-21 00:42 | Outpatient (CLI) | payer MEDICARE, SELFPAY ==
--- NOTE | 2021-08-21 | DI.CT_ITS ---
Exam(s) CT CHEST WO EXAM: CT CHEST WO CLINICAL HISTORY: F/U LUNG NODULE, R91.8 TECHNIQUE: CT examination of the chest was performed utilizing low-dose lung cancer screening protoc ol. COMPARISON: No exams were available for comparison FINDINGS: Images obtained through the upper abdomen show unremarkable appearance of visualized portions of the liver, spleen, pancreas, adrenals, and kidneys. Note is made of coronary artery calcification.. There is no mediastinal or hilar adenopathy. Mediastinal vascular structures appear intact by noncon trast criteria. Tracheobronchial tree appears intact. No pleural effusion or pleural-based mass. The lungs are predominantly clear with mild pulmonary emphysematous changes. There are 6-7 millimete r mean diameter noncalcified nodules in both the right lung base and left lung base medially. No oth er significant nodule identified. IMPRESSION: Lung RADS Cat 3 - Probably Benign: Probably benign finding(s) - short term follow-up suggested; incl ude nodules with a low likelihood of becoming a clinically active cancer. Follow-up noncontrast chest CT recommended in 6 months. RADIATION DOSE DELIVERED: 846.57mGy.cm Total DLP CTDIvol 846.57mGy.cm Total DLP CTDIvol RADIATION OPTIMIZATION: All CT scans at this facility use at least one of these dose optimization te chniques: automated exposure control; mA and/or kV adjustment per patient size (includes targeted exa ms where dose is matched to clinical indication); or iterative reconstruction.
== END ==
PROVIDERS: PCP Nurse Practitioner Family; Visit Provider Nurse Practitioner Family
DX: R91.8 Other nonspecific abnormal finding of lung field (principal); J98.4 Other disorders of lung
CPT/HCPCS: 71250

== ENCOUNTER → 2021-10-30 11:21 | Outpatient (CLI) | payer MEDICARE, SELFPAY ==
--- NOTE | 2021-10-30 | DI.RAD_ITS ---
Exam(s) XR CHEST 2V PA LATERAL EXAM: XR CHEST 2V PA LATERAL CLINICAL HISTORY: SOB R06.02 TECHNIQUE: 2D digital imaging was performed. COMPARISON: CT CT CHEST WO from 08/21/2021 FINDINGS: MEDIASTINUM: Normal. HEART: Normal. PULMONARY VASCULATURE: Normal. LUNGS: Clear. PLEURAL SPACE: No pleural effusion or pneumothorax. BONE:Unremarkable for age. IMPRESSION: No acute abnormality. DATA REPOSITORY: RADIATION DOSE DELIVERED:
== END ==
PROVIDERS: PCP Nurse Practitioner Family; Visit Provider Nurse Practitioner Family
DX: R06.02 Shortness of breath (principal)
CPT/HCPCS: 71046

== ENCOUNTER 2022-02-04 20:32 | Outpatient (REF) | payer MEDICARE, SELFPAY ==
[2022-02-04 18:43] LABS: Anion Gap 6.9 mmol/L (3-11); BUN 16 mg/dL (7-18); CO2 30.1 mmol/L (21.0-32.0); Calcium 9.1 mg/dL (8.5-10.1); Chloride 104 mmol/L (98-107); Glucose 106 mg/dL (74-106); Potassium 4.2 mmol/L (3.5-5.1); Sodium 141 mmol/L (136-145)
[2022-02-10 16:08] LABS: Testosterone, Free 7.24 ng/dL (3.47-13.0); Testosterone, Total 268 ng/dL (240-950)
== END 2022-02-04 20:33 | disposition home or self-care (01) ==
LOC: NCHCN 20:32
PROVIDERS: PCP Nurse Practitioner Family; Visit Provider Nurse Practitioner Family
DX: E11.9 Type 2 diabetes mellitus without complications (principal); I10 Essential (primary) hypertension; R23.2 Flushing
CPT/HCPCS: 80048; 84402; 84403

== ENCOUNTER → 2022-03-10 03:14 | Outpatient (CLI) | payer MEDICARE, SELFPAY | PROVIDERS: PCP Nurse Practitioner Family; Visit Provider Nurse Practitioner Family ==

== ENCOUNTER 2022-06-10 04:08 | Outpatient (CLI) | payer MEDICARE, SELFPAY ==
--- NOTE | 2022-06-10 09:22 | DI.CT_ITS ---
Exam(s) CT CHEST WO EXAM: CT CHEST WO CLINICAL HISTORY: LUNG NODULE R91.8. TECHNIQUE: Multi planar reconstructions were performed. CONTRAST MATERIAL: None COMPARISON: CT CT ABDOMEN PELVIS W from 01/28/[address] CHEST WO from 08/21/2021 FINDINGS: CHEST: LUNGS: In the right lung there is an unchanged 3 millimeter nodule in the superior segment of the rig ht lower lobe. Below this level in the right lower lobe there is a 7 x 5 millimeter nodule, not prev iously present. Below this level is another pleural-based smaller 4 x 3 millimeter nodule in the post erior aspect of the right lower lobe, unchanged. There are no significant nodules in the right upper lobe nor in the right middle lobe. No pleural effusions. In the opposite-left lung there are no nodules in the upper lobe nor in the lingular segment. In the left lower lobe there is a 7 x 5 millimeter unchanged nodule medially again noted. Just above this le phillip and slightly lateral is a tiny 2 millimeter unchanged nodule. No new left lung nodules. No pleura l effusions on either side. No new focal findings in the trachea and mainstem bronchi. MEDIASTINUM: There is no obvious hilar nor mediastinal adenopathy. Visualized thyroid unremarkable.No obvious axillary adenopathy CARDIAC: Heart size is normal. There is no pericardial effusion.Caliber of the thoracic aorta is wit hin normal limits. VISUALIZED UPPER ABDOMEN:No significant adrenal masses. Incidentally noted is a benign cyst in the po sterior cortex of the left kidney measuring 2.2 x 2 cm, unchanged. OSSEOUS: No significant osseous lesions.No fractures.. IMPRESSION: 1. Compared to the CT scan of 08/21/2021 the previously described bilateral lung nodules remain stabl e. However, on the right side there is a new noncalcified subpleural oval well-defined nodule posteri edgar in the right lower lobe measuring 7 x 5 millimeters, not previously present. This requires close follow-up given that was not present in August 2020. 2. No pleural effusions nor intrathoracic adenopathy. RADIATION DOSE DELIVERED: 844.83mGy.cm Total DLP DATA REPOSITORY: All CT scans at this facility are submitted to the National Radiology Data Registry (NRDR) Dose Index Registry (DIR) with the [employer] ([employer]). RADIATION OPTIMIZATION: All CT scans at this facility use at least one of these dose optimization te chniques: automated exposure control; mA and/or kV adjustment per patient size (includes targeted exa ms where dose is matched to clinical indication); or iterative reconstruction.
== END 2022-06-10 04:28 ==
LOC: DI 04:10
PROVIDERS: PCP Nurse Practitioner Family; Visit Provider Nurse Practitioner Family
DX: R91.8 Other nonspecific abnormal finding of lung field (principal)
CPT/HCPCS: 71250

== ENCOUNTER 2022-12-24 17:18 | Outpatient (REF) | payer MEDICARE, SELFPAY ==
[2022-12-24 17:01] LABS: HCT 46.5 % (40.0-50.0); HGB 15.3 g/dL (13.5-17.5); MCH 29.8 pg (27.0-33.0); MCHC 32.9 % (32.0-36.0); MCV 91 fL (80-95); MPV 10.3 fL (8.0-11.0); Platelet Count 219 10^3/uL (130-400); RBC 5.14 10^6/uL (4.36-5.78); RDW 12.8 % (11.8-14.1); RDW-SD 42.5 fL; WBC 8.63 10^3/uL (4.4-10.8)
[2022-12-24 18:06] LABS: Anion Gap 11.5 mmol/L (3-11); BUN 27 mg/dL (7-18); CO2 24.5 mmol/L (21.0-32.0); CREATININE 1.1 mg/dL (0.70-1.30); Calcium 9.2 mg/dL (8.5-10.1); Calculated LDL 100 mg/dL (<100); Chloride 104 mmol/L (98-107); Cholesterol 171 mg/dL (<200); Estimated GFR 73.58 (mL/min/1.73m2); Glucose 148 mg/dL (74-106); HDL Cholesterol 61 mg/dL (40-60); Potassium 4.5 mmol/L (3.5-5.1); Sodium 140 mmol/L (136-145); Triglyceride 53 mg/dL (<150)
[2022-12-24 18:35] LABS: Iron 70 ug/dL (65-175); Total Iron Binding Capacity 350 ug/dL (250-450); Transferrin Sat 20 % (20-55)
== END 2022-12-24 17:19 | disposition home or self-care (01) ==
LOC: NCHCN 17:18
PROVIDERS: PCP Nurse Practitioner Family; Visit Provider Nurse Practitioner Family
DX: I10 Essential (primary) hypertension (principal); E78.5 Hyperlipidemia, unspecified; R42 Dizziness and giddiness; E11.9 Type 2 diabetes mellitus without complications
CPT/HCPCS: 80048; 80061; 85027; 83540; 83550

== ENCOUNTER 2022-12-28 01:29 | Outpatient (CLI) | payer MEDICARE, SELFPAY ==
--- NOTE | 2022-12-28 07:45 | DI.CT_ITS ---
Exam(s) CT CHEST WO EXAM: CT CHEST WO CLINICAL HISTORY: f/u new lung nodule,r91.1. TECHNIQUE: Imaging protocol: Axial computed tomography images were obtained and coronal and sagittal reformatted images were created and reviewed. COMPARISON: CT CT ABDOMEN PELVIS W from 01/28/[address] CHEST WO from 06/10/2022 FINDINGS: Tracheobronchial tree: Patent where visualized. Pulmonary parenchyma: The 3 nodules in the right lower lobe are stable. The largest measures 7 mm. The left lower lobe pulmonary nodule is unchanged. It measures 7 mm. No new pulmonary nodules are s een. No architectural distortion. Mediastinum and Marilyn: No dominant adenopathy or fluid collection. The esophagus is unremarkable. Thyroid gland: Unremarkable. Pleura: No effusion or pneumothorax. Heart: The heart is not dilated. Mild coronary artery calcification is present. No pericardial effus ion. Aorta: Thoracic aorta non-dilated. Atherosclerosis is present. Upper abdomen: There is stable bilateral simple renal cysts. No follow-up is recommended. Lymph nodes: Within normal limits. Soft tissues: Unremarkable. Bones:Within normal limits for the patient's age. IMPRESSION: 1. Stable pulmonary nodules. A follow-up examination in 6-12 months to document stability of these n odules is recommended. 2. No acute pulmonary process. RADIATION DOSE DELIVERED: 805.04mGy.cm Total DLP 805.04mGy.cm Total DLP DATA REPOSITORY: All CT scans at this facility are submitted to the National Radiology Data Registry (NRDR) Dose Index Registry (DIR) with the [employer] ([employer]). RADIATION OPTIMIZATION: All CT scans at this facility use at least one of these dose optimization te chniques: automated exposure control; mA and/or kV adjustment per patient size (includes targeted exa ms where dose is matched to clinical indication); or iterative reconstruction.
== END 2022-12-28 01:49 ==
LOC: DI 01:32
PROVIDERS: PCP Nurse Practitioner Family; Visit Provider Physician Assistant Surgical
DX: R91.1 Solitary pulmonary nodule (principal); R91.8 Other nonspecific abnormal finding of lung field
CPT/HCPCS: 71250

== ENCOUNTER 2023-06-02 10:55 | Outpatient (CLI) | payer MEDICARE, SELFPAY | END 2023-06-02 10:56 | disposition home or self-care (01) | PROVIDERS: PCP Nurse Practitioner Family; Visit Provider Nurse Practitioner Family | DX: R53.1 Weakness (principal) | CPT/HCPCS: 93246 ==

== ENCOUNTER → 2023-06-17 01:05 | Outpatient (CLI) | payer MEDICARE, SELFPAY ==
--- NOTE | 2023-06-17 07:30 | DI.CT_ITS ---
Exam(s) CT CHEST WO EXAM: CT CHEST WO CLINICAL HISTORY: F/U LUNG NODULE, R91.1. TECHNIQUE: Imaging protocol: Axial computed tomography images were obtained and coronal and sagittal reformatted images were created and reviewed. COMPARISON: CT CT ABDOMEN PELVIS W from 01/28/[address] CHEST WO from 12/28/2022 FINDINGS: Tracheobronchial tree: Patent where visualized. Pulmonary parenchyma: No consolidation or dominant measurable mass. There again seen 3 noncalcified n odules in the right lower lobe. The largest measures 7 mm. A 7 mm nodule in the left lower lobe is stable. No new pulmonary nodules are seen. Mediastinum and Marilyn: No dominant adenopathy or fluid collection. The esophagus is unremarkable. Thyroid gland: Unremarkable. Pleura: No effusion or pneumothorax. Heart: The heart is not dilated. Coronary artery calcification is present. No pericardial effusion. Aorta: Thoracic aorta non-dilated. Atherosclerosis. Upper abdomen: There is again seen a cyst in the left kidney. No follow-up is recommended. Lymph nodes: Within normal limits. Soft tissues: Unremarkable. Bones:Within normal limits for the patient's age. IMPRESSION: 1. Stable pulmonary nodules. No new pulmonary nodules. 2. No acute pulmonary process. 3. 6-12 month follow-up is recommended. RADIATION DOSE DELIVERED: 818.06mGy.cm Total DLP 818.06mGy.cm Total DLP DATA REPOSITORY: All CT scans at this facility are submitted to the National Radiology Data Registry (NRDR) Dose Index Registry (DIR) with the [employer] ([employer]). RADIATION OPTIMIZATION: All CT scans at this facility use at least one of these dose optimization te chniques: automated exposure control; mA and/or kV adjustment per patient size (includes targeted exa ms where dose is matched to clinical indication); or iterative reconstruction.
== END ==
PROVIDERS: PCP Nurse Practitioner Family; Visit Provider Physician Assistant Surgical
DX: R91.1 Solitary pulmonary nodule (principal)
CPT/HCPCS: 71250

== ENCOUNTER → 2023-09-08 14:38 | Outpatient (BNVA) | payer MEDICARE, SELFPAY | PROVIDERS: PCP Physician Assistant; Referring Provider Physician Assistant; Visit Provider Student in an Organized Health Care Education/Training Program | DX: R91.1 Solitary pulmonary nodule (principal); F12.90 Cannabis use, unspecified, uncomplicated | CPT/HCPCS: 99214 ==

== ENCOUNTER 2023-12-30 09:39 | Outpatient (REF) | payer MEDICARE, SELFPAY ==
[2023-12-30 16:18] LABS: ALT 30 U/L (16-63); AST 12 U/L (15-37); Albumin 3.8 g/dL (3.4-5.0); Alkaline Phosphatase 52 U/L (46-116); Anion Gap 10.9 mmol/L (3-11); BUN 31 mg/dL (7-18); Bilirubin, Total 0.3 mg/dL (0.2-1.0); CO2 28.1 mmol/L (21.0-32.0); CREATININE 1.2 mg/dL (0.70-1.30); Calcium 9.4 mg/dL (8.5-10.1); Calculated LDL 96 mg/dL (<100); Chloride 106 mmol/L (98-107); Cholesterol 175 mg/dL (<200); Estimated GFR 65.87 (mL/min/1.73m2); Glucose 144 mg/dL (74-106); HDL Cholesterol 56 mg/dL (40-60); Potassium 4.9 mmol/L (3.5-5.1); Sodium 145 mmol/L (136-145); Total Protein 7.6 g/dL (6.4-8.2); Triglyceride 115 mg/dL (<150)
[2023-12-30 16:27] LABS: COMMENT (LAB VIEW ONLY) 147.14 mg/dL; Microalb ug/mg Crea 18.1 ug/mg Cr
[2023-12-30 16:29] LABS: Hemoglobin A1C 7.6 % (<5.7)
[2023-12-30 23:04] LABS: PSA, Screening 0.8 ng/mL (<=4.5)
== END 2023-12-30 09:40 | disposition home or self-care (01) ==
LOC: NCHCN 09:39
PROVIDERS: PCP Physician Assistant; Visit Provider Physician Assistant
DX: E11.9 Type 2 diabetes mellitus without complications (principal); R79.89 Other specified abnormal findings of blood chemistry; Z12.5 Encounter for screening for malignant neoplasm of prostate
CPT/HCPCS: 80053; 80061; 84153; 82043; 82570; 83036

== ENCOUNTER 2024-05-28 20:07 | Outpatient (REF) | payer MEDICARE, SELFPAY ==
[2024-05-28 19:27] LABS: Hemoglobin A1C 7.6 % (<5.7)
== END 2024-05-28 20:08 | disposition home or self-care (01) ==
LOC: NCHCN 20:07
PROVIDERS: PCP Physician Assistant; Visit Provider Physician Assistant
DX: E11.9 Type 2 diabetes mellitus without complications (principal)
CPT/HCPCS: 83036

== ENCOUNTER 2025-05-09 18:23 | Outpatient (REF) | payer MEDICARE, SELFPAY ==
[2025-05-09 16:43] LABS: Hemoglobin A1C 6.7 % (<5.7)
[2025-05-09 16:49] LABS: ALT 22 U/L (16-63); AST 19 U/L (15-37); Albumin 3.8 g/dL (3.4-5.0); Alkaline Phosphatase 56 U/L (46-116); Anion Gap 9.6 mmol/L (3-11); BUN 24 mg/dL (7-18); Bilirubin, Total 0.3 mg/dL (0.2-1.0); CO2 25.4 mmol/L (21.0-32.0); Calcium 9.5 mg/dL (8.5-10.1); Calculated LDL 71 mg/dL (<100); Chloride 104 mmol/L (98-107); Cholesterol 160 mg/dL (<200); Estimated GFR 59.10 (mL/min/1.73m2); Glucose 121 mg/dL (74-106); HDL Cholesterol 54 mg/dL (>or=40); Potassium 4.6 mmol/L (3.5-5.1); Sodium 139 mmol/L (136-145); Total Protein 8.2 g/dL (6.4-8.2); Triglyceride 179 mg/dL (<150)
[2025-05-09 17:14] LABS: COMMENT (LAB VIEW ONLY) 130.91 mg/dL; Microalb ug/mg Crea 6.0 ug/mg Cr
== END 2025-05-09 18:24 | disposition home or self-care (01) ==
LOC: NCHCN 18:23
PROVIDERS: PCP Physician Assistant; Visit Provider Physician Assistant
DX: E11.9 Type 2 diabetes mellitus without complications (principal)
CPT/HCPCS: 80053; 80061; 82043; 82570; 83036